=== PATIENT | male | born 1980 | race Caucasian/White ===

== ENCOUNTER 2018-04-01 21:45 | Emergency (ER) | payer BC ==
[2018-04-01] MEDS ORDERED: BUPIVACAINE HCL 0.75% INJ/PF (7.5 MG/1 ML) 10 ML SDV INJ ONE (22:00)
[2018-04-01] MEDS ORDERED: DIPH/PERTUSS(ACELL)/TETANUS VAC/PF 0.5 ML SYR (>=10YO) IM ONE (22:01)
[2018-04-01] MEDS ORDERED: BUPIVACAINE HCL 0.5 % INJ/PF 30 ML SDV INJ ONE (22:03)
--- NOTE | 2018-04-01 22:29 | RADIOLOGY REPORT (SQ) ---
3 VIEWS LEFT HAND HISTORY: Trauma to left hand. COMPARISON: None. FINDINGS: Acute mildly displaced and comminuted fracture of the fourth distal phalanx with surrounding soft tissue swelling. No evidence of dislocation. Remaining joint spaces are preserved. IMPRESSION: Acute mildly displaced and comminuted fracture of the fourth distal phalanx.
[2018-04-01] MEDS ORDERED: LIDOCAINE 1% INJ (10 MG/ML) 10 ML MDV INJ ONE (23:04)
[2018-04-01] MEDS ORDERED: LIDOCAINE 1% INJ-PF (10 MG/ML) 30 ML SDV ONE (23:06)
[2018-04-02] MEDS ORDERED: CEPHALEXIN 500 MG CAPSULE PO ONE (00:02)
--- NOTE | 2018-04-02 00:03 | ER Document Report ---
ED General <CORNELIO HASSAN - Last Filed: 04/02/18 00:04> - General TRAVEL OUTSIDE OF THE [place] IN LAST 30 DAYS: No <CLEMENCIA KABA - Last Filed: 04/02/18 03:57> - General Chief Complaint: Hand Injury Stated Complaint: LEFT FINGER LACERATION Time Seen by Provider: 04/01/18 21:55 Notes: Patient is a 37-year-old male without chronic medical problems who presents after sustaining a crush injury with associated laceration of his left ring finger. This did occur when a kayak fell onto his finger just prior to arrival. He states that since that time he has had a dull, throbbing, constant pain to the distal aspect of his left ring finger. He is right-hand dominant. He denies any additional associated injuries. Bleeding has been controlled with direct pressure. He has not trying to improve the pain. Any touching the area worsens the pain. He has not contacted his primary care doctor regarding today's concerns. (CLEMENCIA KABA) - Related Data Allergies/Adverse Reactions: No Known Allergies Allergy (Unverified 06/13/15 13:10) Past Medical History - General Information source: Patient - Social History Smoking Status: Never Smoker Frequency of alcohol use: Occasional Drug Abuse: None Lives with: Spouse/Significant other Family History: Reviewed & Not Pertinent Patient has suicidal ideation: No Patient has homicidal ideation: No - Past Medical History Cardiac Medical History: Denies: Hx Coronary Artery Disease, Hx Heart Attack, Hx Hypertension Pulmonary Medical History: Denies: Hx Asthma, Hx Bronchitis, Hx COPD, Hx Pneumonia Neurological Medical History: Denies: Hx Cerebrovascular Accident, Hx Seizures Renal/ Medical History: Denies: Hx Peritoneal Dialysis Musculoskeletal Medical History: Denies Hx Arthritis - Immunizations Hx Diphtheria, Pertussis, Tetanus Vaccination: Yes <CLEMENCIA KABA - Last Filed: 04/02/18 03:57> Review of Systems <CORNELIO HASSAN - Last Filed: 04/02/18 00:04> <CLEMENCIA KABA - Last Filed: 04/02/18 03:57> - Review of Systems Notes: Constitutional: Negative for fever. Eyes: Negative for visual changes. ENT: Negative for facial injury Cardiovascular: Negative for chest injury. Respiratory: Negative for shortness of breath. Gastrointestinal: Negative for abdominal injury. Genitourinary: Negative for genital injury Musculoskeletal: Positive for left ring finger crush injury Skin: Positive for laceration/abrasions. Neurological: Negative for head injury. (CLEMENCIA KABA) Physical Exam <CORNELIO HASSAN - Last Filed: 04/02/18 00:04> - Vital signs Interpretation: Normal <CLEMENCIA KABA - Last Filed: 04/02/18 03:57> - Vital signs Vitals: Temp Pulse Resp BP Pulse Ox 98.7 F 57 L 16 138/73 H 99 04/02/18 00:27 04/02/18 00:27 04/02/18 00:27 04/02/18 00:27 04/02/18 00:27 Notes: PHYSICAL EXAMINATION: GENERAL: Well-appearing, well-nourished and in no acute distress. HEAD: Atraumatic, normocephalic. EYES: sclera anicteric, conjunctiva are normal. ENT: Moist mucous membranes. NECK: Normal range of motion LUNGS: Normal work of breathing HEART: 2+ radial pulses bilaterally EXTREMITIES: Crushtype injury to the distal tip of the left middle finger with associated subungual hematoma, irregular, flap type laceration over the ulnar aspect of the digit. Along the volar aspect of the distal tip is pulled up and there is noted cyanotic, dusky tissue at the very tip of the finger. NEUROLOGICAL: No focal neurological deficits. Moves all extremities spontaneously and on command. PSYCH: Normal mood, normal affect. SKIN: Warm, Dry, normal turgor, no rashes or lesions noted. (CLEMENCIA KABA) Course <CORNELIO HASSAN - Last Filed: 04/02/18 00:04> <CLEMENCIA KABA - Last Filed: 04/02/18 03:57> - Re-evaluation Re-evalutation: 04/02/18 00:02 Patient presents with a tuft fracture of the left ring finger with an overlying laceration and associated nailbed injury. See laceration documentation for repair as performed by the physician assistant news director Cornelio Hassan. Tetanus has been updated. Wound was cleaned and irrigated. Patient has been placed on prophylactic antibiotics. Of note, the patient did have what appeared to be a partially ischemic volar tip of the finger at time of presentation which did have some improvement in coloration after primary repair. I have informed the patient that the survivability of this aspect of the finger is not guaranteed and he and his significant other at the bedside do verbalize an understanding of this. He will follow-up with orthopedic hand on Thursday. At this time will discharge with return precautions and follow-up recommendations. Verbal discharge instructions given a the bedside and opportunity for questions given. Medication warnings reviewed. Patient is in agreement with this plan and has verbalized understanding of return precautions and the need for orthopedic Follow-up on Thursday. (CLEMENCIA KABA) - Vital Signs Vital signs: Temp Pulse Resp BP Pulse Ox 98.7 F 57 L 16 138/73 H 99 04/02/18 00:27 04/02/18 00:27 04/02/18 00:27 04/02/18 00:27 04/02/18 00:27 Procedures - Laceration/Wound Repair left 4th digit Wound length (cm): 2 Wound's Depth, Shape: Irregular, Flap Laceration pre-procedure: Sterile PPE donned, Sterile drapes applied, Shur- Clens applied Anesthetic type: 0.5% Bupivacaine Volume Anesthetic (mLs): 4 - 2 ml on each side Wound explored: Clean, No foreign body removed Irrigated w/ Saline (mLs): 50 Wound Repaired With: Sutures Suture Size/Type: 5:0, Prolene, Nylon Number of Sutures: 8 Layer Closure?: No Post-procedure wound care: Sterile dressing applied, Splint applied Post-procedure NV exam normal: Yes Complications: No <CORNELIO HASSAN - Last Filed: 04/02/18 00:04> <CLEMENCIA KABA - Last Filed: 04/02/18 03:57> - Laceration/Wound Repair left 4th digit Notes: 04/02/18 After thorough cleansing and digital block was performed (using 0.5% bupivacaine and 1% lidocaine), sutured up the wound/flap, replaced the nail back under the cuticle manually, placed a Xeroform dressing, Veronika wrap, splint. (CORNELIO HASSAN) Discharge <CORNELIO HASSAN - Last Filed: 04/02/18 00:04> <CLEMENCIA KABA - Last Filed: 04/02/18 03:57> - Discharge Clinical Impression: Crushing injury of left ring finger Qualifiers: Encounter type: initial encounter Qualified Code(s): S67.195A - Crushing injury of left ring finger, initial encounter Laceration of left ring finger Qualifiers: Encounter type: initial encounter Damage to nail status: with damage Foreign body presence: without foreign body Qualified Code(s): S61.315A - Laceration without foreign body of left ring finger with damage to nail, initial encounter Condition: Good Disposition: HOME, SELF-CARE Additional Instructions: Please return to your primary doctor, the ED, or an urgent care in 7 days for suture removal. Return immediately if you develop spreading redness around the wound, pus from the wound, worsening pain, or a fever of >100.4. Keep the area clean and dry. Wash gently with soap and water twice daily and cover with antibiotic ointment. You do also have an underlying fracture of your ring finger. You need to follow -up with the orthopedic hand surgeon on Thursday regarding this fracture in your overlying wound. Please take the Keflex which is for prophylaxis. For your pain: Take ibuprofen 600 mg and acetaminophen 1000 mg every 6 hours together as needed for pain. Prescriptions: Cephalexin Monohydrate [Keflex 500 mg Capsule] 500 mg PO Q6H 5 Days capsule Referrals: TYRONE CLOUD MD [Primary Care Provider] - Follow up as needed LAURA LEON DO [ACTIVE STAFF] - 04/05/18
[2018-04-02 00:30] VITALS: BP 138/73
== END 2018-04-02 00:27 | disposition home or self-care (01) ==
LOC: ER 21:45
DX: S67.195A Crushing injury of left ring finger, initial encounter (principal); S62.635A Displaced fracture of distal phalanx of left ring finger, initial encounter for closed fracture; S61.315A Laceration without foreign body of left ring finger with damage to nail, initial encounter; W21.89XA Striking against or struck by other sports equipment, initial encounter; Z23 Encounter for immunization
CPT/HCPCS: 99283; 90471; 73130; 90715; 12001; J3490

== ENCOUNTER 2018-04-27 10:23 | Day surgery (SDC) | payer BC ==
[~2018-04-27 10:23] MED LIST: ACETAMINOPHEN 1,000 MG/100 ML RTUPB IV ONE; CEFAZOLIN 2 GM/D5W RTU 2 GM/50 ML RTUPB IV PRN; DEXAMETHASONE SOD PHOSPHATE INJ 4 MG/1 ML VIAL ONE; FENTANYL CITRATE INJ/PF 100 MCG/2 ML AMPUL ONE; MIDAZOLAM 2 MG/2 ML INJ ONE; ONDANSETRON HCL INJ/PF 4 MG/2 ML SDV ONE; PROPOFOL INJ 200 MG/20 ML VIAL IV ONE
[2018-04-27] MEDS ORDERED: CEFAZOLIN 2 GM/D5W RTU 2 GM/50 ML RTUPB IV ONE (11:20)
[2018-04-27] MEDS ORDERED: FAMOTIDINE INJ/PF 20 MG/2 ML SDV IV ONE (11:20)
[2018-04-27] MEDS ORDERED: BUPIVACAINE HCL 0.5 % INJ/PF 30 ML SDV ONE (11:20)
[2018-04-27] MEDS ORDERED: ONDANSETRON HCL INJ/PF 4 MG/2 ML SDV IV PRN ×2 (12:50→13:22)
[2018-04-27] MEDS ORDERED: PROMETHAZINE HCL INJ 25 MG/1 ML VIAL IV PRN ×2 (12:50)
[2018-04-27] MEDS ORDERED: MEPERIDINE HCL/PF INJ 25 MG/1 ML DISP.SYRIN IV PRN (12:50)
[2018-04-27] MEDS ORDERED: FENTANYL CITRATE INJ/PF 100 MCG/2 ML AMPUL IV PRN ×3 (12:50)
[2018-04-27] MEDS ORDERED: MORPHINE SULFATE 10 MG/ML INJ IV PRN ×2 (12:50→13:22)
[2018-04-27] MEDS ORDERED: DIPHENHYDRAMINE HCL 50 MG/ML VIAL IV PRN (12:50)
[2018-04-27] MEDS ORDERED: OXYCODONE-ACETAMINOPHEN 5-325 MG TABLET PO PRN (13:22)
--- NOTE | 2018-04-27 13:22 | Discharge Summary ---
Discharge Summary (SDC) - Discharge Final Diagnosis: Left ring finger distal tip amputation Date of Surgery: 04/27/18 Discharge Date: 04/27/18 Condition: Good Treatment or Instructions: Schedule Follow Up w/ Dr. Donavon Grey @ [facility] for Surgery to be seen in 7-10 days [place]: [place]: [place]: May remove dressing on postop day #7, keep incision covered and dry. Ice and elevate May begin finger range of motion attempting to make full fist. Stool softener of choice when on pain medication. Prescriptions: Ketorolac Tromethamine [Toradol 10 mg Tablet] 10 mg PO Q8HP PRN #12 tablet PRN Reason: Oxycodone HCl/Acetaminophen [Percocet 5-325 mg Tablet] 1 tab PO Q6 PRN #25 tab PRN Reason: Referrals: TYRONE CLOUD MD [Primary Care Provider] - Discharge Diet: As Tolerated Respiratory Treatments at Home: Deep Breathing/Coughing Discharge Activity: No Lifting Over 10 Pounds, No Lifting/Push/Pulling Report the Following to Your Physician Immediately: Fever over 101 Degrees, Unusual Bleeding, Redness, Swelling, Warmth, Increased Soreness
--- NOTE | 2018-04-27 13:22 | Operative Report ---
Operative Report DATE OF SURGERY: 04/27/18 PREOPERATIVE DIAGNOSIS: Left ring finger transphalangeal distal tip amputation POSTOPERATIVE DIAGNOSIS: Same OPERATION: Left ring finger revision amputation with removal of bone, soft tissue with V-Y advancement flap SURGEON: LAURA LEON ANESTHESIA: LMAC COMPLICATIONS: None ESTIMATED BLOOD LOSS: Minimal PROCEDURE: Indication for above procedure: 37-year-old male who sustained a crush injury to his left ring finger on when it got jammed with a boat trailer. We attempted conservative measures but patient developed necrosis of the distal tip given the amount of necrosis decision was made to proceed with operative intervention including possible flap coverage. Risks and benefits were explained patient verbalized understanding consented for the procedure. Procedure In Detail: Patient was seen and evaluated in the preoperative holding area. The LEFT upper extremity was initialized and marked. Patient received 2g of Ancef IV for bacterial prophylaxis. Patient was taken back to the operative room where transferred to the operative table and placed under general anesthesia. Once they were adequately anesthetized a nonsterile tourniquet was placed on the upper extremity. A surgical team debriefing was performed ensuring all instrumentation was available, the surgical procedure was discussed with possible concerns reviewed. The upper extremity was prepped with Betadine and draped in a sterile fashion. A timeout was done identifying correct patient, procedure and extremity everyone in attendance agree with this and verbalized no concerns. The extremity was elevated the tourniquet was inflated to 250 mmHg. Patient's distal tip was removed underneath there was evidence of early granulation tissue and adipose however a small amount of exposed bone was visualized at the level of the nail plate. The nail plate was contoured and less than 1 mm of distal phalanx was removed. Wound was copiously irrigated with normal saline. Given the small amount of remaining soft tissue and transverse nature of the amputation A V-Y flap was constructed. The proximal tip extended to the DIP joint flexion crease and with determined by the width of the nail plate. The underlying fibrous septum was then released to obtain adequate excursion. Once adequate excursion was obtained the distal aspect was attached to the nail plate with interrupted 4-0 chromic gut. The proximal aspect of the DIP joint was closed with interrupted 4-0 chromic gut. The remaining flap was then reapproximated with chromic gut. There is no evidence of residual exposed bone and adequate contour radially and ulnarly. The tourniquet was deflated there was evidence of vascularity to the flap. 10 cc of 0.5% bupivacaine without epinephrine was injected for postoperative pain control. Wound was dressed with Xeroform 4 x 4's and a soft dressing. Sponge counts, instrument counts, needle counts were correct. Patient was then awoken from anesthesia. Transferred from the operating room table to the operating room stretcher. There was no intraoperative complications patient tolerated procedure well stable to PACU. Postoperative plan: Patient follow-up in 1 week for wound check.
[2018-04-27] MEDS: FENTANYL CITRATE INJ/PF 100 MCG/2 ML AMPUL ONE ×2 (13:35→13:40)
[2018-04-27] MEDS ORDERED: OXYCODONE-ACETAMINOPHEN 5-325 MG TABLET ONE (14:19)
[2018-04-27] MEDS ORDERED: RINGERS SOLUTION,LACTATED 1,000 ML IV PRN (14:53)
[2018-04-27 16:18] VITALS: BP 130/85
== END 2018-04-27 15:40 | disposition home or self-care (01) ==
LOC: OROUT 10:23
PROVIDERS: ATTEND Orthopaedic Surgery
DX: S68.627D Partial traumatic transphalangeal amputation of left little finger, subsequent encounter (principal); W23.0XXD Caught, crushed, jammed, or pinched between moving objects, subsequent encounter
CPT/HCPCS: 26952; J2250; J3490; J1100; J3010; J2405; J2704; S0028; J0690; J0131; 1830